=== PATIENT | male | born 1990 | race Caucasian/White ===

== ENCOUNTER → 2019-06-29 | Outpatient (CLI) | payer BC ==
[~2019-06-29] MED LIST: NAPR-243 PO
--- NOTE | 2019-06-29 10:53 | Diagnostic Imaging Report ---
INDICATION: Abnormal thyroid stimulating hormone level TECHNIQUE: Grayscale sonographic images of the thyroid gland. CORRELATION STUDY: None FINDINGS: RIGHT LOBE: Enlarged, 5.7 x 2.0 x 2.5 cm. There is normal echotexture about the right lobe. LEFT LOBE: Enlarged, 5.1 x 1.8 x 2.2 cm. There is normal echotexture about the left lobe. Isthmus appears unremarkable. IMPRESSION: Enlarged thyroid gland demonstrates no definitive solid or cystic mass lesion. If further assessment of thyroid function is desired, nuclear medicine thyroid scan and uptake would be recommended. (Normal gland size: 4-5 x 2 x 2 cm) Dictated by: Dictated on workstation # [id number]
== END ==
LOC: RAD 09:57
PROVIDERS: ATTEND Nurse Practitioner
DX: E04.9 Nontoxic goiter, unspecified (principal); R94.6 Abnormal results of thyroid function studies
CPT/HCPCS: 76536

== ENCOUNTER → 2019-07-08 | Outpatient (CLI) | payer BC ==
--- NOTE | 2019-07-08 08:56 | Diagnostic Imaging Report ---
PROCEDURE: US Gallbladder. TECHNIQUE: Multiple real-time grayscale images were obtained over the right upper quadrant in various projections. INDICATION: Right upper quadrant pain and chest pain for 4 days. Liver is mildly enlarged at 18.3 cm. No discrete liver mass is identified. The portal vein is patent and shows normal direction of flow. Gallbladder is without stones or sludge. No wall thickening or biliary ductal dilatation is seen. Pancreas was obscured by bowel gas. Right kidney is without evidence of calculi or hydronephrosis. There is no ascites. IMPRESSION: Mild hepatomegaly. There is no evidence of cholelithiasis or acute cholecystitis. Dictated by: Dictated on workstation # [id number]
== END ==
LOC: RAD 07:49
PROVIDERS: ATTEND Nurse Practitioner Family
DX: R16.0 Hepatomegaly, not elsewhere classified (principal); R10.11 Right upper quadrant pain; R07.9 Chest pain, unspecified
CPT/HCPCS: 76705